=== PATIENT | female | born 1960 ===

== ENCOUNTER 2017-10-14 13:52 | Outpatient (CLI) | payer OTHER ==
--- NOTE | 2017-10-14 15:03 | XRay Report ---
XRAY LEFT HIP THREE VIEWS: 10/14/17 13:52:00 CLINICAL: Left hip pain. FINDINGS: Mild osteoarthritis with acetabular eburnation. No fracture or dislocation. The pelvic bones are intact. The right hip is normal. Soft tissues are normal. IMPRESSION: Mild osteoarthritis.
== END 2017-10-14 13:53 | disposition home or self-care (01) ==
LOC: SPVIMAG 13:52
PROVIDERS: ATTEND Internal Medicine
DX: M16.12 Unilateral primary osteoarthritis, left hip (principal)